=== PATIENT | male | born 1965 | race Caucasian/White ===

== ENCOUNTER 2017-03-09 08:51 | Emergency (ER) | payer BC ==
[~2017-03-09] VITALS: Ht 170.2 cm; Wt 98.0 kg
[2017-03-09 08:54] VITALS: Ht 170.2 cm; Wt 98.0 kg
[2017-03-09] MEDS ORDERED: IBUPROFEN 800 MG TAB PO ONE (09:30)
[2017-03-09] MEDS ORDERED: IBUP800T25 PO (11:11)
[2017-03-09] MEDS ORDERED: CELE200C PO (11:12)
--- NOTE | 2017-03-09 11:15 | ERD ---
ER Documentation Chief Complaint Date/Time DATE: 03/09/17 TIME: 11:13 Chief Complaint pt bib with c/o left knee pain s/p twisting it HPI This is a 52-year-old male presents the emergency department today complaining of left knee pain and swelling and pain with ambulation for the past 2 days. Patient states he was moving heavy stuff from his garage when he twisted his knee. States he has had knee pain in the past. Denies any fevers or chills. States he has tried Celebrex and Motrin. Denies any fevers or chills. ROS All systems reviewed and are negative except as per history of present illness. Medications Home Meds Active Scripts Celecoxib* (Celebrex*) 200 Mg Capsule, 200 MG PO DAILY, #15 CAP Prov:LORIN PARIKH PA-C 03/09/17 Ibuprofen* (Motrin*) 800 Mg Tab, 800 MG PO Q6, #30 TAB Prov:LORIN PARIKH PA-C 03/09/17 Allergies Allergies: Coded Allergies: No Known Allergy (Unverified , 03/09/17) PMhx/Soc History of Surgery: No Anesthesia Reaction: No Hx Neurological Disorder: No Hx Respiratory Disorders: No Hx Cardiac Disorders: No Hx Psychiatric Problems: No Hx Miscellaneous Medical Probl: No Hx Alcohol Use: No Hx Substance Use: No Hx Tobacco Use: No Smoking Status: Never smoker Physical Exam Vitals Vital Signs Date Time Temp Pulse Resp B/P Pulse Ox O2 Delivery O2 Flow Rate FiO2 03/09/17 08:54 98.5 108 18 168/109 97 Physical Exam Const: NAD Head: Atraumatic Eyes: Normal Conjunctiva ENT: Normal External Ears, Nose and Mouth. Neck: Full range of motion..~ No meningismus. Resp: Clear to auscultation bilaterally Cardio: Regular rate and rhythm, no murmurs Skin: No petechiae or rashes MSK: Left knee with no obvious deformity. Moderate effusion. No warmth no erythema. Decreased range of motion secondary to pain. Tenderness along lateral joint line. Pulses 2+. Distal neurovascularly intact. Neur: Awake and alert Psych: Normal Mood and Affect Results 24 hrs Current Medications Medications (Trade) Dose Ordered Sig/Maddy Route PRN Reason Start Time Stop Time Status Last Admin Dose Admin Ibuprofen (Motrin) 800 mg ONCE ONCE PO 03/09/17 09:30 03/09/17 09:32 DC 03/09/17 09:41 DIAGNOSTIC IMAGING REPORT Patient: KELLY HODGES : 1965 Age: 52 Sex: M MR #: [id number] DOS: 03/09/17 0000 Ordering MD: LORIN PARIKH PA-C Location: E Room/Bed: PROCEDURE: Left knee radiographs. CLINICAL INDICATION: Trauma with a twisting mechanism. Left knee pain. TECHNIQUE: Three views. Weight bearing. Frontal, lateral, and oblique. COMPARISON: No prior studies are available for comparison. FINDINGS: There is no fracture or dislocation. There is a small joint effusion. Articular surfaces are intact. There is no lytic or blastic lesion. There is no radiopaque foreign body. IMPRESSION: 1. Small joint effusion. 2. Otherwise unremarkable images of the left knee. If there is clinical concern regarding a tendon or ligament abnormality, MRI is advised. RPTAT: QQ .Lew Corea MD MD Date Time Electronically viewed and signed by .Lew Corea MD, MD on 03/09/2017 11:20 .R/ CC: LORIN PARIKH PA-C Procedures/MDM This 52-year-old male who presents the emergency department today with his who is charge at [address]. here in the hospital. Patient indicated that he had been moving some items in his garage when his knee twisted and he felt pain. Given patient's trauma and effusion I did obtain images. Per the radiology report images of the left knee show a small joint effusion. There is no fracture or dislocation. Articular surfaces are intact. Patient history of twisting his knee symptoms at this time is consistent with sprain versus strain. He is afebrile and otherwise well-appearing. I have low suspicion for septic joint or gout. There is some warmth however there is no erythema. I did explain to the patient he may need further evaluation with an MRI as an outpatient. Patient understood. Patient did not request narcotics here in the emergency department and only requested ibuprofen. This was given to him. Has taken Mobic and Celebrex in the past and was requesting a refill on the Celebrex. Patient will be given a prescription for Celebrex and Motrin. He was instructed not to take Mobic and Celebrex at the same time. Patient was also given a knee immobilizer and crutches to help ambulate. At this time the patient is stable for discharge and outpatient management. Patient should follow up with their PCP in the next 1-2 days. They may return to the emergency department sooner for any persistent or worsening of symptoms. Patient understood and agreed with the plan. Departure Diagnosis: Primary Impression: Knee injury Encounter type: initial encounter Laterality: left Qualified Code: S89.92XA - Injury of left knee, initial encounter Condition: Fair Patient Instructions: Reducing Knee Pain and Swelling Referrals: your PCP [facility] Hours: Mon-Fri 9:00 AM - 5:00 PM Additional Instructions: Call your primary care doctor TOMORROW for an appointment during the next 1-2 days.See the doctor sooner or return here if your condition worsens before your appointment time. Plan with primary care doctor for possible referral to physical education specialist. Use knee immobilizer and Javi wrap to help decrease swelling. Use crutches to help ambulate. Take Naprosyn or Tylenol or Motrin for pain Do not use both Mobic and Celebrex. LORIN PARIKH PA-C Mar 09, 2017 11:15
--- NOTE | 2017-03-09 11:21 | RADRPT ---
PROCEDURE: Left knee radiographs. CLINICAL INDICATION: Trauma with a twisting mechanism. Left knee pain. TECHNIQUE: Three views. Weight bearing. Frontal, lateral, and oblique. COMPARISON: No prior studies are available for comparison. FINDINGS: There is no fracture or dislocation. There is a small joint effusion. Articular surfaces are intact. There is no lytic or blastic lesion. There is no radiopaque foreign body. IMPRESSION: 1. Small joint effusion. 2. Otherwise unremarkable images of the left knee. If there is clinical concern regarding a tendon or ligament abnormality, MRI is advised. RPTAT: QQ .Lew Corea MD, Date Time Electronically viewed and signed by .Lew Corea MD, on 03/09/2017 11:20 .R/
== END 2017-03-09 11:30 | disposition home or self-care (01) ==
LOC: FTE 08:51
DX: S89.92XA Unspecified injury of left lower leg, initial encounter (principal); X50.9XXA Other and unspecified overexertion or strenuous movements or postures, initial encounter; Y92.9 Unspecified place or not applicable
CPT/HCPCS: 73562

== ENCOUNTER → 2017-10-29 | Outpatient (CLI) | END | disposition home or self-care (01) ==

== ENCOUNTER → 2018-03-12 | Outpatient (CLI) | END | disposition home or self-care (01) ==

== ENCOUNTER 2018-04-08 14:50 | Inpatient (IN) | END 2018-04-11 15:05 | disposition home or self-care (01) | DRG 684 ==

== ENCOUNTER → 2018-04-29 | Outpatient (CLI) | END | disposition home or self-care (01) ==

== ENCOUNTER → 2018-07-15 | Outpatient (CLI) | payer BC ==
[~2018-07-15] MED LIST: ALLO300T2 PO; ATEN-51 PO; CALC667C PO; DOXA1TAB38 PO; ERGO80009 PO; FURO40TA4 PO; OMEG-155 PO
== END | disposition home or self-care (01) ==
LOC: LAB 12:18
PROVIDERS: ATTEND Internal Medicine Nephrology
DX: N18.9 Chronic kidney disease, unspecified (principal)
CPT/HCPCS: 80053; 83735; 84100; 85025

== ENCOUNTER → 2018-12-30 | Outpatient (CLI) | payer BC | END | disposition home or self-care (01) | LOC: LAB 11:17 | PROVIDERS: ATTEND Internal Medicine Nephrology | DX: N18.9 Chronic kidney disease, unspecified (principal) | CPT/HCPCS: 80053; 81001; 82043; 84100; 85025 ==